=== PATIENT | female | born 1945 | race Caucasian/White ===

== ENCOUNTER → 2017-04-10 | Outpatient (CLI) | payer MEDICARE, OTHER | END | disposition home or self-care (01) | LOC: GMAM 11:00 | PROVIDERS: ATTEND Family Medicine | DX: D51.9 Vitamin B12 deficiency anemia, unspecified (principal); N39.0 Urinary tract infection, site not specified ==

== ENCOUNTER → 2017-05-15 | Outpatient (CLI) | payer MEDICARE, OTHER | END | disposition home or self-care (01) | LOC: GMAM 17:00 | PROVIDERS: ATTEND Family Medicine | DX: N39.0 Urinary tract infection, site not specified (principal) ==

== ENCOUNTER → 2017-05-29 | Outpatient (CLI) | payer MEDICARE, OTHER | END | disposition home or self-care (01) | LOC: GMAM 17:19 | PROVIDERS: ATTEND Family Medicine | DX: N39.0 Urinary tract infection, site not specified (principal) ==

== ENCOUNTER → 2017-07-23 | Outpatient (CLI) | payer MEDICARE, OTHER | END | disposition home or self-care (01) | LOC: GMAM 10:45 | PROVIDERS: ATTEND Family Medicine | DX: E53.8 Deficiency of other specified B group vitamins (principal) ==

== ENCOUNTER → 2017-07-30 | Outpatient (CLI) | payer MEDICARE, OTHER | END | disposition home or self-care (01) | LOC: GMAM 16:33 | PROVIDERS: ATTEND Family Medicine | DX: R29.898 Other symptoms and signs involving the musculoskeletal system (principal) ==

== ENCOUNTER → 2017-11-18 | Outpatient (CLI) | payer MEDICARE | LOC: GMAM 10:38 | PROVIDERS: ATTEND Family Medicine | DX: E53.8 Deficiency of other specified B group vitamins (principal); E55.9 Vitamin D deficiency, unspecified ==

== ENCOUNTER → 2018-06-22 | Outpatient (CLI) | payer MEDICARE | LOC: GMAM 17:37 | PROVIDERS: ATTEND Family Medicine | DX: N39.0 Urinary tract infection, site not specified (principal) ==

== ENCOUNTER → 2018-07-02 | Outpatient (CLI) | payer MEDICARE, OTHER ==
--- NOTE | 2018-07-02 20:55 | MAM ---
EXAM DESCRIPTION: 3D Screening BILATERAL : Digital Mammography. CLINICAL HISTORY: 72 years Female SCREENING . No complaints. No personal history or family history of breast cancer. Childbirth. Perimenopausal. No HRT. Lifetime risk of developing breast cancer (Tyrer-Cuzick model)(%): 4.3 COMPARISON: Baseline study at this facility. TECHNIQUE: Bilateral CC and MLO projection full-field images, Digital tomosynthesis mammographic technique. Bilateral digital 2-D full-field MLO images. CAD not utilized. FINDINGS: The breast parenchymal density pattern is: Heterogeneously dense breast tissue, which may obscure small masses. No skin thickening or nipple retraction. Solitary microcalcification right breast. Focal asymmetry upper outer quadrant of the posterior third of the right breast approximately 8 cm from the nipple. Probable lymph node in the axillary tail of the left breast. No focal, stellate mass or density, focal asymmetry , and no suspicious microcalcifications left breast IMPRESSION: BI-RADS CATEGORY: 0 - INCOMPLETE- Need additional imaging evaluation. FOLLOW-UP: Recall for additional imaging: Additional tomosynthesis and 2-D digital imaging right breast and targeted right breast ultrasound if indicated by diagnostic images.. Written communication concerning the IMPRESSION and Follow-up, will be mailed to the patient and referring health care provider. Electronically signed by: Mannie Sanchez MD 07/02/2018 8:54 PM CDT
== END ==
LOC: MAMMO 13:00
PROVIDERS: ATTEND Family Medicine
DX: Z12.31 Encounter for screening mammogram for malignant neoplasm of breast (principal)

== ENCOUNTER → 2018-07-28 | Outpatient (CLI) | payer OTHER ==
--- NOTE | 2018-07-28 14:02 | US ---
EXAM DESCRIPTION: Breast,Right: Ultrasound CLINICAL HISTORY: 72 yearsFemaleABN MAMMO COMPARISON: Digital diagnostic tomosynthesis right breast on this visit. Bilateral screening digital breast tomosynthesis 07/02/2018. TECHNIQUE: Transcutaneous scanning of the right breast utilizing barron-scale and Doppler modes. Scanning performed by the medical territory manager and Dr. Laura acharya. FINDINGS: Scanning of the upper outer quadrant of the right breast from the 10:00 to the 12:00 position, 8 cm from the nipple, to the nipple. Mostly fatty echotexture with scattered islands of fibroglandular tissues. 5 x 4 mm anechoic cyst. Parallel orientation, thin fraser, nonvascular and posterior enhancement features. No distinct solid mass, no abnormal vascularity. No parenchymal edema. No overlying skin changes. No large calcifications. IMPRESSION: 1. Bi-Rads Category 2: Benign. 2. Please refer to digital diagnostic right breast tomosynthesis examination and report on this visit. The FINDINGS and the FOLLOW-UP plan were reviewed in person with the patient after the examination. Written communication explaining the IMPRESSION and FOLLOW-UP will be mailed to the patient and referring care provider. The FINDINGS and the FOLLOW-UP plan were reviewed in person with the patient after the examination. Written communication explaining the IMPRESSION and FOLLOW-UP will be mailed to the patient and referring care provider. Electronically signed by: Mannie Sanchez MD 07/28/2018 2:01 PM CDT
--- NOTE | 2018-07-28 19:06 | MAM ---
EXAM DESCRIPTION: 3D Diagnostic, Right: Digital Mammography CLINICAL HISTORY: 72 yearsFemaleABNORMAL MAMMO focal asymmetry in the upper outer quadrant of the posterior third of the right breast. COMPARISON: Targeted right breast ultrasound included with this examination. Bilateral screening digital breast tomosynthesis 07/02/2018.. TECHNIQUE: Right LM projection full-field images, digital mammographic tomosynthesis technique. Focal spot compression of the upper-outer quadrant of the posterior right breast in the MLO and CC projections. CAD not utilized. FINDINGS: The breast parenchymal density pattern is: Heterogeneously dense breast tissue, which may obscure small masses. No skin thickening or nipple retraction scattered microcalcifications. Minimal focal asymmetry remains but no focal mass density. ULTRASOUND: Scanning of the upper outer quadrant of the right breast from the 10:00 to the 12:00 position, 8 cm from the nipple, to the nipple. Mostly fatty echotexture with scattered islands of fibroglandular tissues. 5 x 4 mm anechoic cyst. Parallel orientation, thin fraser, nonvascular and posterior enhancement features. No distinct solid mass, no abnormal vascularity. No parenchymal edema. No overlying skin changes. No large calcifications. IMPRESSION: Benign exam. BIRAD CATEGORY: 2 BENIGN FINDINGS. RECOMMENDATIONS: FOLLOW UP: Return to routine digital bilateral screening, one year interval from June 2018. Written communication explaining the IMPRESSION and follow-up, will be mailed to the patient and referring health care provider. According to the [employer], yearly mammograms are recommended starting at age 40 and continuing as long as a woman is in good health. Any breast change noted on a breast self-exam should be reported promptly to the patient's healthcare provider. Breast MRI is recommended for women with an approximately 20-25% or greater lifetime risk of breast cancer, including women with a strong family history of breast or ovarian cancer and women who have been treated for Hodgkin's disease. A negative mammographic report should not delay tissue diagnosis in patients with significant clinical history or physical findings. Extremely dense breast tissue limits the sensitivity of digital mammography. Electronically signed by: Mannie Sanchez MD 07/28/2018 7:04 PM CDT
== END ==
LOC: MAMMO 09:19
PROVIDERS: ATTEND Family Medicine
DX: R92.8 Other abnormal and inconclusive findings on diagnostic imaging of breast (principal)
CPT/HCPCS: 76641; 77065; G0279

== ENCOUNTER → 2018-10-27 | Outpatient (CLI) | payer OTHER ==
--- NOTE | 2018-10-27 18:15 | US ---
EXAM DESCRIPTION: Carotid Duplex: ULTRASOUND. CLINICAL HISTORY: 73 years Female AMS. Dizzy. COMPARISON: MRI scan of the brain on the same visit. TECHNIQUE: Transcutaneous scanning utilizing barron-scale and Doppler modes to evaluate the bilateral carotid systems and vertebral arteries. Percentage of diameter of stenosis or no stenosis recorded will be based upon NASCET criteria. FINDINGS: Peak systolic/end diastolic (CM-Sec) CCA Right 79/19 Left 87/18. ICA Right proximal 62/22, mid 63/23. Left proximal 79/24, mid 65/23. Vertebral Right 53/15 Left 49/15. ECA (PS Only) Right 65 left 67. ICA/CCA peak systolic ratio: Right 0.8 Left 0.9 ICA/CCA end diastolic ratio: Right 1.2 Left 1.3 Vertebral arteries: antegrade flow. Comments Comments: Atherosclerotic calcification bilaterally in the bulbs. Area stenosis in the right CCA bulb is 19%. Diameter stenosis 15%. Area stenosis in the left CCA bulb is 30%. Diameter stenosis 30%. IMPRESSION: 1. Doppler evaluation of the bilateral carotid systems and vertebral arteries shows no hemodynamically significant stenoses. 2. No significant amount of plaque seen in the carotid arteries bilaterally. Bilateral vertebral arteries showed antegrade-cephalad flow. Electronically signed by: Mannie Sanchez MD 10/27/2018 6:14 PM [facility]UC[facility]
--- NOTE | 2018-10-27 21:01 | MRI ---
EXAM DESCRIPTION: Brain w/wo Contrast: Magnetic Resonance Imaging. CLINICAL HISTORY: 73 years Female AMS COMPARISON: None. TECHNIQUE: Multiplanar, high-field MRI, multiple conventional sequences, without and with gadolinium IV contrast. No adverse reactions. Multiple axial diffusion sequences. FINDINGS: Bilaterally at the level of the ventricles and toward the vertex, well-circumscribed and fluid lesions are noted in the cortical barron matter abutting the sulci, and extending into the adjacent subcortical white matter. Largest lesion is at the junction of the left frontal and left parietal lobe. 3 lesions with identical signal characteristics on the contralateral right side: Largest is abutting the right frontal parietal sulci as well as abutting some of the sulci in the right occipital lobe near the vertex. These right cortical lesions are smaller but also circumscribed. Hyperintense on FLAIR sequence, T2-weighted sequence, grade echo imaging, T2 fat saturation-B0 diffusion imaging and ADC coefficient map. Low signal on T2 fat saturation-B1000 diffusion imaging, T1 imaging and postcontrast T1 spin-echo and 3-D images, with no enhancement. Focal hypointense FLAIR, T1 signal in the inferior right basal ganglia which is hyperintense on T2-weighted and gradient imaging. This could represent a cyst or an old infarct. Also bright on T2 fat saturation B0 diffusion image and ADC map. Otherwise normal signal in the bilateral basal ganglia. No hemorrhage, no cerebral edema, no mass-effect. No diffusion restriction. Normal contrast enhancement. Normal signal in the brainstem and cerebellar hemispheres. No hemorrhage, no cerebral edema, no mass-effect. No diffusion restriction. Normal contrast enhancement. Concordance of the diffusion and non-diffusion sequences with no evidence of acute or subacute infarction. Cortical sulci, ventricles, and other CSF spaces, and the subdural spaces are occipital lobe. Normally configured for patients age. No effacement or displacement. No midline shift. No extra-axial hemorrhage. Normal contrast enhancement. Abnormal or unusual flow signal void in the intracranial segment of the distal left ICA and the bifurcation to form the anterior middle cerebral vessels on the left. Major vessels of the [place], and the venous sinuses. IACs are symmetric bilaterally. No fluid in the bilateral mastoid air cells. No mass effect in the bilateral Cerebellopontine angles. Normal contrast enhancement. Pituitary gland occupies most of the sella. Normal contrast enhancement. Base of the cerebellar tonsils is at the level of the foramen magnum. Mucoperiosteal thickening involving some of the ethmoid paranasal sinuses. The bony calvarium is intact. IMPRESSION: 1. Abnormal signal in the barron matter abutting the cortical sulci and extending into the adjacent subcortical white matter, at 4 locations near the vertex of the brain bilaterally at the frontoparietal junctions and also in the right occipital lobe. These lesions appear chronic without evidence of mass effect, hemorrhage, diffusion restriction, or abnormal contrast enhancement. This could represent old embolic process. 2. Normal noncontrast MRI diffusion study with no evidence of acute or subacute infarction. No intra-axial extra-axial hemorrhage. No midline shift or herniation. No abnormal contrast enhancement. 3. Questionable stenosis or obstruction or artifact with lack of visualization of flow signal void in the distal left ICA intracranial segment at the bifurcation to form the left anterior cerebral and middle cerebral vessels. Axial T2 contrast series 801, images 8-10. Appearance on the coronal T1 contrast sequences is equivocal. Consider follow-up CTA for more sensitive evaluation. Electronically signed by: Mannie Sanchez MD 10/27/2018 9:00 PM [facility]
== END ==
LOC: MRI 10:43
PROVIDERS: ATTEND Family Medicine
DX: R41.82 Altered mental status, unspecified (principal); R26.0 Ataxic gait

== ENCOUNTER → 2018-11-30 | Outpatient (CLI) | payer OTHER | LOC: GMAM 10:48 | PROVIDERS: ATTEND Family Medicine | DX: E53.8 Deficiency of other specified B group vitamins (principal); E55.9 Vitamin D deficiency, unspecified ==

== ENCOUNTER → 2019-04-19 | Outpatient (CLI) | payer OTHER | LOC: GMAM 11:28 | PROVIDERS: ATTEND Family Medicine | DX: E53.8 Deficiency of other specified B group vitamins (principal); E55.9 Vitamin D deficiency, unspecified; I10 Essential (primary) hypertension; E11.9 Type 2 diabetes mellitus without complications ==

== ENCOUNTER → 2020-07-10 | Outpatient (CLI) | payer OTHER | LOC: GMAM 14:23 | PROVIDERS: ATTEND Family Medicine | DX: E53.8 Deficiency of other specified B group vitamins (principal); E55.9 Vitamin D deficiency, unspecified; I10 Essential (primary) hypertension; E11.9 Type 2 diabetes mellitus without complications; E78.2 Mixed hyperlipidemia ==

== ENCOUNTER → 2020-08-04 | Outpatient (CLI) | payer OTHER ==
--- NOTE | 2020-08-08 08:56 | MAM ---
EXAM DESCRIPTION: 3D Screening BILATERAL : Digital Mammography. CLINICAL HISTORY: 74 years Female ANNUAL SCREENING . No complaints. No family history of breast cancer. Menarche age 13. Childbirth age 20. Menopause age . No HRT. Lifetime risk of developing breast cancer (Tyrer-Cuzick model)(%): 3.1. COMPARISON: Bilateral screening digital breast tomosynthesis June 2018 diagnostic digital breast tomosynthesis and directed right breast ultrasound July 2018. TECHNIQUE: Bilateral CC and MLO projection full-field images, digital tomosynthesis mammographic technique. Bilateral digital 2-D full-field MLO images. CAD available for 2-D images. FINDINGS: The breast parenchymal density pattern is: Scattered areas of fibroglandular density. No skin thickening or nipple retraction. Solitary microcalcifications. Vascular calcifications. Stable mass density anterior left breast most likely intramammary lymph node. No new focal, stellate mass or density, focal asymmetry , and no suspicious microcalcifications bilaterally. Stable mammograms compared to prior study. IMPRESSION: Benign exam. BIRAD CATEGORY: 2 BENIGN FINDINGS. RECOMMENDATIONS: FOLLOW UP: Routine digital bilateral mammographic screening, one year interval from July 2020. Written communication explaining the IMPRESSION and follow-up, will be mailed to the patient and referring health care provider. According to the [employer], yearly mammograms are recommended starting at age 40 and continuing as long as a woman is in good health. Any breast change noted on a breast self-exam should be reported promptly to the patient's healthcare provider. Breast MRI is recommended for women with an approximately 20-25% or greater lifetime risk of breast cancer, including women with a strong family history of breast or ovarian cancer and women who have been treated for Hodgkin's disease. A negative mammographic report should not delay tissue diagnosis in patients with significant clinical history or physical findings. Extremely dense breast tissue limits the sensitivity of digital mammography. Electronically signed by: Mannie Sanchez MD 08/08/2020 8:54 AM CDT
== END ==
LOC: MAMMO 10:38
PROVIDERS: ATTEND Family Medicine
DX: Z12.31 Encounter for screening mammogram for malignant neoplasm of breast (principal)